=== PATIENT | male | born 1965 | race Native Hawaiian/Other Pacific Islander ===

== ENCOUNTER 2017-06-07 10:18 | Day surgery (SDC) | payer MEDICAID ==
--- NOTE | 2017-06-07 11:54 | CP.SDSHP ---
Same Day Surgery H & P - History Proposed Procedure: US guided FNA of right submandibular node Pre-Op Diagnosis: right submandibular node - Physical Exam Mental Status: Alert & Oriented x3 - Impression Impression: Pt with a complex 2.2 cm hypoechoic solid right submandibular mass. Plan US guided FNA. Pt. Evaluated Today:Candidate for Anesthesia & Procedure: No Short Stay Discharge - Short Stay Discharge Admitting Diagnosis/Reason for Visit: NECK MASS Disposition: HOME/ ROUTINE
--- NOTE | 2017-06-07 11:55 | PCM.SURG1 ---
Surgeon's Initial Post Op Note - Surgeon's Notes Surgeon: Elver Escalona MD Medical Records Technician: NONE Type of Anesthesia: Local Pre-Operative Diagnosis: right submandibular mass. Operative Findings: Pt with a complex 2.2 cm hypoechoic solid right submandibular mass Post-Operative Diagnosis: right submandibular mass Operation Performed: US guided FNA of right submandibular mass. Specimen/Specimens Removed: 25 g FNA x 6 passes Estimated Blood Loss: EBL {In ML}: 1 Blood Products Given: N/A Drains Used: No Drains Post-Op Condition: Fair Date of Surgery/Procedure: 06/07/17 Time of Surgery/Procedure: 11:50
[2017-06-07 11:56] VITALS: BMI 25.8
[2017-06-07 12:20] VITALS: BP 128/74; PULSE 72; RESP 18; TEMP 97.6; O2SAT 97
--- NOTE | 2017-06-07 13:54 | US ---
PROCEDURE: Date of procedure: 06/07/2017 Procedure: Ultrasound-guided FNA of right submandibular lymph node, CPT 64988 Ultrasound guidance for biopsy, 16[address] Medications: 4cc 1% Lidocaine HISTORY: 2.2 right submandibular lymph node. TECHNIQUE: Following informed consent and procedure time-out, limited ultrasound patient's right neck demonstrates an enlarged hypoechoic right submandibular lymph node measuring 2.2 centimeters. The patient's neck was prepped and draped in the usual sterile fashion. The skin was anesthetized with 1 percent lidocaine. Ultrasound-guided fine needle aspiration was then performed using a 25 gauge needle. A total of 6 passes were made into the lymph node under direct ultrasound guidance. FNA specimens were obtained and sent for routine pathology and flow cytometry. A post biopsy ultrasound showed no hematoma IMPRESSION: Ultrasound-guided biopsy of enlarged right submandibular lymph node.
== END 2017-06-07 12:24 | disposition home or self-care (01) ==
LOC: C.SPRAD 10:18
PROVIDERS: ATTEND Radiology Vascular & Interventional Radiology
DX: D11.7 Benign neoplasm of other major salivary glands (principal)